=== PATIENT | male | born 1945 | race Caucasian/White ===

== ENCOUNTER → 2021-03-02 | Outpatient (CLI) | payer MEDICARE, OTHER ==
[2021-03-02 10:57] LABS: African American GFR (CKD) >90 (>60 ml/min/1.73 sqM); Blood Urea Nitrogen 23 mg/dL (9-20); Non-African American GFR(CKD) 85 (>60 ml/min/1.73 sqM)
--- NOTE | 2021-03-02 11:59 | CT ---
EXAMINATION TYPE: CT urogram wo/w con DATE OF EXAM: 03/02/2021 COMPARISON: None HISTORY: hematuria CT DLP: 1228.8 mGycm CONTRAST: Performed and without and with IV Contrast, patient injected with 100 mL of Isovue 300. CT Urography was performed with unenhanced followed by enhanced images of the kidneys, ureters and ur inary bladder. Delayed images were obtained. 3d reconstruction was performed at a separate work sta tion. FINDINGS: KIDNEYS/BLADDER: No hydronephrosis. No nephrolithiasis. Exophytic cystic lesion mid pole left kidne y posteriorly measures 1.2 cm. No additional solid or cystic lesions are identified. Urinary bladder grossly unremarkable. LUNG BASES-: No visible nodule. No infiltrate. LIVER/GB: No calcified gallstones. No space occupying hepatic lesion. Biliary tree is of normal ca liber. PANCREAS: No inflammation. No distinct mass. SPLEEN: No splenic enlargement. No lesion seen. ADRENALS: No nodule. No thickening. BOWEL: Normal appendix. Normal bowel caliber. No inflammation. GENITAL ORGANS: No gross abnormality. LYMPH NODES: No greater than 1cm abdominal or pelvic lymph nodes are appreciated. AORTA: No significant abnormality. OSSEOUS STRUCTURES: No significant abnormality is seen. OTHER: No significant additional abnormality is seen. IMPRESSION: 1. Exophytic cystic lesion mid pole left kidney posteriorly measures 1.2 cm.
== END | disposition home or self-care (01) ==
LOC: RADCTMAIN 10:21
PROVIDERS: ATTEND Urology
DX: N28.1 Cyst of kidney, acquired (principal); R31.9 Hematuria, unspecified
CPT/HCPCS: 82565; 84520; 74178; 36415; 74400; Q9967

== ENCOUNTER → 2021-07-16 | Outpatient (CLI) | payer MEDICARE, OTHER ==
--- NOTE | 2021-07-16 10:35 | XR ---
EXAM TYPE: LUMBAR SPINE X RAY SERIES COMPARISON: NONE HISTORY: Pain TECHNIQUE: 3 views are submitted. FINDINGS: Alignment is anatomic. The pedicles are intact. The transverse processes are intact. There is diff use osteopenia. Vascular calcifications are seen. Severe degenerative disc disease L5-S1 with mild to moderate changes at L4-5. Mild facet arthropathy lower lumbar spine. IMPRESSION: 1. Severe degenerative disc disease L5-S1
--- NOTE | 2021-07-16 10:37 | XR ---
EXAMINATION TYPE: XR cervical spine w flex/ext DATE OF EXAM: 07/16/2021 COMPARISON: NONE HISTORY: TECHNIQUE: Frontal, lateral and odontoid, lateral oblique and flexion-extension lateral views submitt ed. Views are submitted. FINDINGS: The odontoid is intact. There are no compression deformities. The prevertebral soft tissue structur es are within normal limits. Postsurgical changes involving the level C3-C6 appears in near-anatomic alignment. Multilevel facet arthropathy noted. There appears to be slight anterolisthesis of C6 rela tive to C7 on the neutral, flexion and extension views. Suspect foraminal encroachment involving the lower cervical spine. IMPRESSION: 1. Postsurgical changes with multilevel facet arthropathy. Slight anterolisthesis grade 1 C6 relative to T7.
== END | disposition home or self-care (01) ==
LOC: RADXRMAIN 09:59
PROVIDERS: ATTEND Internal Medicine
DX: M47.892 Other spondylosis, cervical region (principal); M51.37 Other intervertebral disc degeneration, lumbosacral region
CPT/HCPCS: 72052; 72100

== ENCOUNTER → 2021-09-08 | Outpatient (CLI) | payer MEDICARE, OTHER ==
[2021-09-08 15:42] LABS: African American GFR (CKD) >90 (>60 ml/min/1.73 sqM); Blood Urea Nitrogen 28 mg/dL (9-20); Non-African American GFR(CKD) 79 (>60 ml/min/1.73 sqM)
--- NOTE | 2021-09-09 07:29 | CT ---
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 TECHNIQUE: Helical acquisition of images was performed from the lung bases through the top of iliac crest to include entire abdomen. CONTRAST: Performed with Oral Contrast and without and with IV Contrast, patient injected with 100 mL of Isovue 300. FINDINGS: LUNG BASES: Mild to moderate medial bibasilar scarring redemonstrated. Coronary artery calcification and/or stents redemonstrated. LIVER/GB: No significant abnormality is appreciated. PANCREAS: No significant abnormality is seen. SPLEEN: No significant abnormality is seen. ADRENALS: Low dense thickening to both adrenal glands redemonstrated consistent with benign lipid justus h hyperplasia. KIDNEYS: No renal calculi on noncontrast CT. Postcontrast images show symmetric uptake and excretion without hydronephrosis seen bilaterally. There is stable exophytic 1.4 cm benign thin-walled cyst pos teriorly mid pole of the left kidney series 7 image 28. No new suspicious solid or cystic masses iden tified BOWEL: Oral contrast does not reach colonic level. No suspicious small or large bowel dilatation. LYMPH NODES: No significant abnormality is seen. OSSEOUS STRUCTURES: Moderate to severe disc space narrowing lumbosacral junction. Posterior disc her niations efface the anterior thecal sac L2-L3, L4-L5, and L5-S1 levels seen best on sagittal images. OTHER: Moderate to severe calcified plaque of the aorta extends into branch vessels IMPRESSION: Stable benign thin-walled exophytic 1.4 cm cyst posteriorly at the mid pole level of kidn ey accounting for technical differences. No suspicious new solid or cystic renal mass identified
== END | disposition home or self-care (01) ==
LOC: RADCTMAIN 15:04
PROVIDERS: ATTEND Urology
DX: D41.02 Neoplasm of uncertain behavior of left kidney (principal)
CPT/HCPCS: 82565; 84520; 74170; 36415; Q9967

== ENCOUNTER → 2021-11-10 | Outpatient (CLI) | payer MEDICARE, OTHER ==
[2021-11-10 14:40] LABS: HCT 42.3 % (39.6-50.0); MCH 28.7 pg (27.0-32.0); MCHC 33.1 g/dL (32.0-37.0); MCV 86.7 fL (80.0-97.0); Mean Platelet Volume 8.9 fL (9.5-12.2); NRBC Per 100 WBC 0 /100 WBCS (0.0-0.0); Platelet Count 135 X 10*3/uL (140-440); RBC 4.88 X 10*6/uL (4.40-5.60); RDW 16.5 % (11.5-14.5); WBC 4.96 X 10*3/uL (4.50-10.00)
[2021-11-10 14:49] LABS: African American GFR (CKD) 96.5 (60.0-200.0); Blood Urea Nitrogen 22.3 mg/dL (9.0-27.0); Non-African American GFR(CKD) 83.3 (60.0-200.0); Potassium 4.4 mmol/L (3.5-5.5)
== END | disposition home or self-care (01) ==
LOC: LABPAT 09:42
PROVIDERS: ATTEND Internal Medicine
DX: Z01.812 Encounter for preprocedural laboratory examination (principal); R07.9 Chest pain, unspecified
CPT/HCPCS: 80051; 82565; 84520; 85027

== ENCOUNTER → 2021-11-16 | Day surgery (SDC) | payer MEDICARE, OTHER ==
[2021-11-12 15:21] VITALS: BMI 21.3
[~2021-11-16] MED LIST: ALPRAZolam 0.25 MG TAB PO PRN; ALPRAZolam 0.5 MG TAB PO PRN; ASPIRIN 325 MG TAB PO ONE; ASPIRIN 81 MG ONE; HEPARIN SODIUM 1,000 UN/ML (10ML VL) IV ONE; HEPARIN SODIUM,PORCINE 10,000 UNIT in SODIUM CHLORIDE 0.9% 1,000 ML IRRIGATION PRN; HEPARIN SODIUM,PORCINE 2,500 UNIT in SODIUM CHLORIDE 0.9% 250 ML IRRIGATION PRN; IOPAMIDOL-370 125ML BTL INJ ONE; LIDOCAINE 1% INJ 10MG/ML (20 ML MDV) ONE; LIDOCAINE 1% INJ 10MG/ML (20 ML MDV) SQ ONE; MIDAZOLAM 2 MG/2 ML VIAL IV ONE; NITROGLYCERIN SL TABS 0.4 MG TAB SUBLINGUAL PRN; RX INFO: IV CONTRAST WAS GIVEN 1 EACH MISC MISCELLANE PRN; SODIUM CHLORIDE 0.9% 1,000 ML IV ONE; SODIUM CHLORIDE 0.9% 1,000 ML in EMPTY BAG 1 BAG IV SCH; VERAPAMIL 2.5 MG/ML 2 ML AMP ONE; VERAPAMIL SYRINGE (5 MG/10 ML) INTRAARTER ONE; fentaNYL (PF) 50 MCG/ML 2 ML AMP IV ONE
[2021-11-16 11:41] VITALS: RESP 16; TEMP 98.6
--- NOTE | 2021-11-16 12:48 | P.CARDCATH ---
Description of Procedure: PROCEDURES PERFORMED: Left heart catheterization, bilateral coronary angiography INDICATION: History of coronary artery disease, symptoms concerning for unstable angina HISTORY: Patient is a pleasant 76-year-old male with history of CAD status post PCI who has been having increased episodes of dyspnea with minimal exertion as well as chest tightness concerning for unstable angina and therefore heart catheterization was recommended. CONSENT:I have discussed the risks, benefits and alternative therapies for the above-mentioned procedure and for both sedation/analgesia as well as necessary blood product administration, if indicated, as they pertain to this patient. The patient has indicated understanding and acceptance of the risks and procedures discussed. PROCEDURE: After the risks, benefits and alternatives of the above mentioned procedure explained in detail with the patient, informed consent was obtained. Patient was taken to the catheterization lab and prepped and draped in usual fashion. 1% lidocaine was used to anesthetize the right radial artery. A 6- [place] Islander sheath was placed in the right radial artery using modified Seldinger technique. Left coronary angiography was performed with a 5-[place] JL 3.5 catheter and right coronary angiography was performed with a 5-[place]er JR5 catheter in various views. A 5-[place] Island[place] FR5 catheter was inserted into the left ventricle and pressure measurements were obtained. The right radial sheath was removed and a TR band was placed with hemostasis achieved. The patient tolerated the procedure well. Patient was transported back to the post catheterization holding area in stable condition. Conscious Sedation: Patient was monitored under the direct supervision of vision of myself for conscious sedation using Versed and fentanyl for a total duration of 13 minutes HEMODYNAMICS: Aorta: 133/78 LV: 128/10, LVEDP 27 SELECTIVE CORONARY ARTERIOGRAPHY: LEFT MAIN: The left main is a large caliber vessel which bifurcates into the LAD and circumflex. There is diffuse calcification with 20% distal left main stenosis. LEFT ANTERIOR DESCENDING CORONARY ARTERY: LAD is a large caliber vessel which wraps around to the apex. There is extensive calcification with diffuse 20-30% LAD stenosis. LEFT CIRCUMFLEX CORONARY ARTERY: Left circumflex is a moderate caliber vessel with diffuse calcification with 30% proximal circumflex stenosis. RIGHT CORONARY ARTERY: The right coronary artery is a large caliber vessel which gives off a PDA and PLV branch and is the dominant vessel. There in mid RCA stent which is patent with diffuse calcification and 30% mid RCA stenosis. FINAL IMPRESSION: 1. Diffusely calcified coronary artery disease with mild 30% stenosis of the LAD, circumflex and RCA. 2. Elevated left sided filling pressures PLAN: 1. Aggressive risk factor modification per most recent ACC/AHA guidelines. 2. Extensive calcifications however no significant disease that would be causing symptoms. Suspect symptoms related to heart failure, elevated LVEDP. Monitor response of Lasix.
[2021-11-16 15:32] VITALS: BP 122/60; PULSE 57
== END ==
LOC: CATHCVL 11:09
PROVIDERS: ATTEND Internal Medicine
DX: I25.10 Atherosclerotic heart disease of native coronary artery without angina pectoris (principal); Z20.822 Contact with and (suspected) exposure to COVID-19
CPT/HCPCS: 93458; 87635; C1894; J2250; J2001; J3010; J1644; Q9967

== ENCOUNTER 2022-06-04 13:40 | Emergency (ER) | payer MEDICARE, OTHER ==
[2022-06-04 13:46] VITALS: TEMP 98.3
[2022-06-04] MEDS ORDERED: MORPHINE SULFATE 2 MG/ML SYRINGE IM STA (13:58)
[2022-06-04] MEDS ORDERED: LIDOCAINE 1% INJ 10MG/ML (20 ML MDV) SQ ONE (13:58)
--- NOTE | 2022-06-04 14:02 | ED ---
Fall HPI - General Chief Complaint: Fall Stated Complaint: Fall Time Seen by Provider: 06/04/22 13:46 Source: patient, EMS, RN notes reviewed Mode of arrival: EMS - History of Present Illness Initial Comments: This is a 77-year-old male who presents to the emergency department for a fall. Patient states that he was getting into his pickup truck, when he slipped and fell face forward. Patient takes a baby aspirin daily and is not on blood thinners otherwise. Denies any loss of consciousness. He is complaining of pain in the head and neck. States that he also tried to brace himself with his left hand is now having pain in the left wrist area. Denies any fevers, chills, sore throat, cough, dyspnea, chest pain, palpitations, abdominal pain, nausea, vomiting, or diarrhea. MD Complaint: fall Fall From: standing Fall Witnessed: no Place Fall Occurred: home Loss of Consciousness: none Prolonged Down Time?: no Symptoms Prior to Fall: none Location: face Location - Extremities: Left: Hand Context: tripped/slipped - Related Data Home Medications Medication Instructions Recorded Confirmed Aspirin [Adult Low Dose Aspirin EC] 81 mg PO DAILY 11/12/21 11/16/21 Atorvastatin [Lipitor] 80 mg PO DAILY 11/12/21 11/16/21 Escitalopram [Lexapro] 10 mg PO DAILY 11/12/21 11/16/21 Escitalopram [Lexapro] 20 mg PO DAILY 11/12/21 11/16/21 Metoprolol Succinate (ER) [Toprol 25 mg PO DAILY 11/12/21 11/16/21 Xl] Previous Rx's Medication Instructions Recorded Furosemide [Lasix] 40 mg PO BID #90 tablet 11/16/21 Allergies Allergy/AdvReac Type Severity Reaction Status Date / Time No Known Allergies Allergy Verified 11/16/21 11:24 Review of Systems ROS Statement: Those systems with pertinent positive or pertinent negative responses have been documented in the HPI. ROS Other: All systems not noted in ROS Statement are negative. Past Medical History Past Medical History: Hyperlipidemia, Hypertension History of Any Multi-Drug Resistant Organisms: None Reported Additional Past Surgical History / Comment(s): Neck fusion, eye surgery Past Psychological History: Anxiety Smoking Status: Former smoker Past Alcohol Use History: None Reported Past Drug Use History: None Reported General Exam Limitations: no limitations General appearance: alert, in no apparent distress Head exam: Present: other (3 cm horizontal laceration to the left eyebrow, minor active bleeding. Hematoma to the forehead surrounding the laceration.) Eye exam: Present: EOMI, other (The right pupil is mildly dilated compared with the left, which the patient states is a chronic problem for him. Both pupils are reactive.) ENT exam: Present: TM's normal bilaterally, normal external ear exam Respiratory exam: Present: normal lung sounds bilaterally. Absent: respiratory distress, wheezes, rales, rhonchi, stridor, chest wall tenderness (No ecchymosis, tenderness, or step-offs to the left ribs) Cardiovascular Exam: Present: regular rate, normal rhythm, normal heart sounds. Absent: systolic murmur, diastolic murmur, rubs, gallop, clicks Extremities exam: Present: other (Full active and passive range of motion of the left hand and wrist. No obvious deformities, swelling, or ecchymosis.) Neurological exam: Present: alert, oriented X3, CN II-XII intact Psychiatric exam: Present: normal affect, normal mood Course Vital Signs 06/04/22 06/04/22 06/04/22 13:42 14:36 15:38 Temperature 98.3 F Pulse Rate 92 90 76 Respiratory 16 16 18 Rate Blood Pressure 156/93 140/81 140/95 O2 Sat by Pulse 98 99 100 Oximetry Procedures - Laceration Laceration #1 Consent Obtained: verbal consent Indication: laceration Site: face Size (cm): 3 Description: linear Depth: simple, single layer Anesthetic Used: lidocaine 1% Anesthesia Technique: local infiltration Amount (mls): 3 Pre-repair: wound explored, irrigated extensively Type of Sutures: nylon Size of Sutures: 5-0 Number of Sutures: 4 Technique: simple, interrupted Medical Decision Making - Medical Decision Making This is a 77-year-old male who presents to the emergency department for a fall. Computed tomography scan of the brain and C-spine obtained revealing no acute intracranial abnormalities. X-ray of the left wrist was also obtained, revealing no acute osseous abnormalities. 4 sutures were placed on the patient's forehead laceration. Patient states that he has an allergy to the tetanus vaccine, which causes facial swelling, and he no longer receives them. Prior to the patient's discharge, he started complaining of pain to the left rib area. I recommended an x-ray of his ribs, however the patient declined. We did discuss risks of pulmonary contusion from potential rib fractures, and the patient expresses understanding. Instructed him to make sure that he takes deep breaths several times a day to reduce his risk of developing a pneumonia. Strict return parameters discussed as well in that if he has increasing shortness of breath, coffee-ground emesis, or worsening pain, he should return to the emergency department for additional imaging. He will return in 7-10 days for suture removal. Advised ibuprofen and Tylenol as needed for pain relief and applying ice to the areas of pain. Return precautions reviewed in depth, the patient is instructed to return to the emergency department with any new, worsening, or concerning symptoms. Patient verbalized understanding. This case was discussed in detail with the attending ED physician. Presentation, findings, and treatment plan discussed in detail as well. - Radiology Data Radiology results: report reviewed, image reviewed Disposition Clinical Impression: Fall, Laceration Disposition: HOME SELF-CARE Instructions (If sedation given, give patient instructions): Care For Your Stitches (ED) Additional Instructions: Return to the emergency department with any new, worsening, or concerning symptoms and in 7-10 days for removal of your stitches. Alternate with ibuprofen and Tylenol as needed for pain relief. Apply ice to the areas of pain as well. Make sure that you take several deep breaths each day to reduce your risk of developing a pneumonia with the rib pain. Follow up with your primary care provider in 1-2 days. Is patient prescribed a controlled substance at d/c from ED?: No Referrals: None,Stated [REFERRING] - 1-2 days
--- NOTE | 2022-06-04 14:17 | XR ---
EXAMINATION TYPE: XR wrist complete LT DATE OF EXAM: 06/04/2022 COMPARISON: NONE HISTORY: Pain TECHNIQUE: 4 views FINDINGS: There is some mild spurring at the first carpometacarpal joint. I see no fracture nor dislo cation. There are small degenerative cyst in the proximal scaphoid bone. IMPRESSION: No acute abnormality of the left wrist. No fracture.
--- NOTE | 2022-06-04 14:53 | CT ---
EXAMINATION TYPE: CT brain lakeisha blackmon DATE OF EXAM: 06/04/2022 COMPARISON: None HISTORY: fall, head LAC CT DLP: 1435.9 mGycm Automated exposure control for dose reduction was used. Images obtained of the brain and cervical spine without contrast. There is some mild cerebral cortical atrophy. There is no mass effect or midline shift. No sign of in tracranial hemorrhage. Calvarium is intact. There is normal aeration of the mastoid sinuses. The skul l base is intact. The cervical vertebra show fairly normal alignment. There is old anterior fusion surgery with plates and screws from C4 to C7. There is a minimal subluxation at C7-T1. Facet joints are intact. No compre ssion fracture. IMPRESSION: Minimal cerebral atrophy. No acute intracranial abnormality. Left frontal scalp soft tissue swelling. Previous cervical spine fusion surgery. No acute abnormality of the cervical spine.
[2022-06-04] MEDS ORDERED: ACET/COD 300 MG/30 MG STARTER PACK 6 TAB BTL PO STA (15:24)
[2022-06-04 15:39] VITALS: BP 140/95; PULSE 76; RESP 18
== END 2022-06-04 15:39 | disposition home or self-care (01) ==
LOC: EC 13:40
DX: S01.81XA Laceration without foreign body of other part of head, initial encounter (principal); I10 Essential (primary) hypertension; E78.5 Hyperlipidemia, unspecified; Z87.891 Personal history of nicotine dependence; Z88.7 Allergy status to serum and vaccine; Z79.82 Long term (current) use of aspirin; W01.0XXA Fall on same level from slipping, tripping and stumbling without subsequent striking against object, initial encounter
CPT/HCPCS: 99284 ×2; 12013 ×2; 96372 ×2; 93005; 73110; 72125; 70450; J2001; J2270

== ENCOUNTER → 2022-06-06 | Outpatient (CLI) | payer MEDICARE, OTHER ==
--- NOTE | 2022-06-06 14:34 | XR ---
EXAMINATION TYPE: XR ribs LT w pa chest xray DATE OF EXAM: 06/06/2022 COMPARISON: NONE HISTORY: Pain TECHNIQUE: PA view of the chest and 4 views of left ribs are submitted. FINDINGS: Left lower lobe consolidation and small effusion. Postsurgical changes overlying the cervic al spine. Heart size normal curvature of the spine. No overt failure. There are displaced fractures i nvolving the anterior margin of the fifth through ninth ribs. Report called to the referring clinicia n to 2:30 PM 06/06/2022. IMPRESSION: Left lower lobe consolidation and small effusion with no sizable pneumothorax. However th ey're displaced rib fracture involving the anterolateral margin of the left fifth through ninth ribs.
== END ==
LOC: RADXRMAIN 13:47
PROVIDERS: ATTEND Internal Medicine
DX: R07.89 Other chest pain (principal)

== ENCOUNTER → 2022-06-23 | Outpatient (CLI) | payer MEDICARE, OTHER ==
--- NOTE | 2022-06-23 16:15 | US ---
EXAMINATION TYPE: US venous doppler duplex LE LT DATE OF EXAM: 06/23/2022 4:03 PM COMPARISON: NONE CLINICAL HISTORY: M79.605 PAIN IN LFT LEG. Pain and edema left foot and ankle SIDE PERFORMED: left TECHNIQUE: The lower extremity deep venous system is examined utilizing real time linear array sonog star with graded compression, doppler sonography and color-flow sonography. VESSELS IMAGED: Common Femoral Vein Deep Femoral Vein Greater Saphenous Vein * Femoral Vein Popliteal Vein Small Saphenous Vein * Proximal Calf Veins (* superficial vessels) Grayscale, color doppler, spectral doppler imaging performed of the deep veins of the lower extremiti es. There is normal flow, compressibility, vascular waveforms. Left Leg: No evidence of DVT IMPRESSION: No ultrasound evidence of deep venous thrombosis of the left lower extremity.
== END | disposition home or self-care (01) ==
LOC: RADUSWWP 15:40
PROVIDERS: ATTEND Internal Medicine
DX: M79.605 Pain in left leg (principal)

== ENCOUNTER 2023-03-22 12:10 | Inpatient (IN) | payer MEDICARE, OTHER ==
--- NOTE | 2023-03-22 13:07 | ED ---
Psych HPI - General Chief Complaint: Psychiatric Symptoms Stated Complaint: Mental Health Time Seen by Provider: 03/22/23 12:29 Source: patient Mode of arrival: ambulatory - History of Present Illness Initial Comments: This patient is 78-year-old man who presents with complaint that he is having increasing depression and more frequent thoughts of suicide. The patient states he has been having outpatient counseling between 2 and 3 months now and it has not been helping. He had just seen his counselor and they recommended he proceeded to emergency department for further evaluation. MD Complaint: suicidal ideation, feels depressed -: month(s) Associated Psychiatric Symptoms: depression, suicidal ideation History of same: Yes Quality: getting worse Improves With: none Worsens With: none Associated Symptoms: denies other symptoms - Related Data Home Medications Medication Instructions Recorded Confirmed Atorvastatin [Lipitor] 80 mg PO DAILY 11/12/21 03/22/23 Ezetimibe [Zetia] 10 mg PO DAILY 03/22/23 03/22/23 FLUoxetine HCL [PROzac] 10 mg PO DAILY 03/22/23 03/22/23 FLUoxetine HCL [PROzac] 40 mg PO DAILY 03/22/23 03/22/23 buPROPion HCL [Wellbutrin XL] 150 mg PO DAILY 03/22/23 03/22/23 busPIRone HCl [Buspar] 5 mg PO TID PRN 03/22/23 03/22/23 Allergies Allergy/AdvReac Type Severity Reaction Status Date / Time No Known Allergies Allergy Verified 03/22/23 13:24 Review of Systems ROS Statement: Those systems with pertinent positive or pertinent negative responses have been documented in the HPI. ROS Other: All systems not noted in ROS Statement are negative. Constitutional: Denies: fever, weakness Eyes: Denies: vision change Respiratory: Denies: cough Cardiovascular: Denies: chest pain, edema Gastrointestinal: Denies: abdominal pain, vomiting, diarrhea Genitourinary: Denies: dysuria, hematuria Skin: Denies: rash Neurological: Denies: headache, weakness, numbness Past Medical History Past Medical History: Hyperlipidemia, Hypertension History of Any Multi-Drug Resistant Organisms: None Reported Additional Past Surgical History / Comment(s): Neck fusion, eye surgery Past Psychological History: Anxiety Smoking Status: Former smoker Past Alcohol Use History: None Reported Past Drug Use History: None Reported General Exam Limitations: no limitations General appearance: alert, in no apparent distress Head exam: Present: atraumatic, normocephalic Eye exam: Present: normal appearance. Absent: scleral icterus, conjunctival injection Neck exam: Present: normal inspection Respiratory exam: Present: normal lung sounds bilaterally. Absent: respiratory distress, wheezes, rales, rhonchi, stridor Cardiovascular Exam: Present: regular rate, normal rhythm, normal heart sounds. Absent: systolic murmur, diastolic murmur, rubs, gallop GI/Abdominal exam: Present: soft. Absent: distended, tenderness, guarding, rebound, rigid, mass Extremities exam: Present: normal inspection, normal capillary refill Neurological exam: Present: alert Psychiatric exam: Present: depressed, suicidal ideation. Absent: agitated, anxious, flat affect, manic, homicidal ideation Skin exam: Present: warm, dry, intact, normal color. Absent: rash Course Vital Signs 03/22/23 12:13 Temperature 97.8 F Pulse Rate 109 H Respiratory 18 Rate Blood Pressure 170/89 O2 Sat by Pulse 97 Oximetry Medical Decision Making - Medical Decision Making Was pt. sent in by a medical professional or institution (, PA, VOLUNTEER SERVICES SUPERVISOR, urgent care, hospital, or group home...) When possible be specific @ -[The patient was sent from his outpatient counselor to be seen in the emergency department Did you speak to anyone other than the patient for history (EMS, parent, family, police, friend...)? What history was obtained from this source @ -[No] Did you review nursing and triage notes (agree or disagree)? Why? @ -[I reviewed and agree with nursing and triage notes] Were old charts reviewed (outside hosp., previous admission, EMS record, old EKG, old radiological studies, urgent care reports/EKG's, group home records)? Report findings @ -[No old charts were reviewed] Differential Diagnosis (chest pain, altered mental status, abdominal pain women, abdominal pain men, vaginal bleeding, weakness, fever, dyspnea, syncope, headache, dizziness, GI bleed, back pain, seizure, CVA, palpatations, mental health, musculoskeletal)? @ -[Differential Mental Health Depression, anxiety, bipolar, psychosis, schizophrenia, borderline personality, situational depression, adjustment disorder, behavioral disorder, brain tumor, malingering, substance abuse, encephalopathy, medication reaction, dementia, hypothyroidism, degenerative neurologic disorder, lupus.... This is not meant to be all-inclusive list EKG interpreted by me (3pts min.). @ -[ X-rays interpreted by me (1pt min.). @ -[None done] CT interpreted by me (1pt min.). @ -[None done] U/S interpreted by me (1pt. min.). @ -[None done] What testing was considered but not performed or refused? (CT, X-rays, U/S, labs)? Why? @ -[None] What meds were considered but not given or refused? Why? @ -[None] Did you discuss the management of the patient with other professionals (professionals i.e. , PA, VOLUNTEER SERVICES SUPERVISOR, lab, RT, psych nurse, child protective services social worker, b2b sales executive, teacher, parking control officer, employment case manager)? Give summary @ -[The case is discussed with EPS personnel. They discussed the case with the psychiatrist Was smoking cessation discussed for >3mins.? @ -[No] Was critical care preformed (if so, how long)? @ -[No] Were there social determinants of health that impacted care today? How? (Homelessness, low income, unemployed, alcoholism, drug addiction, transportation, low edu. Level, literacy, decrease access to med. care, usp, rehab)? @ -[No] Was there de-escalation of care discussed even if they declined (Discuss DNR or withdrawal of care, Hospice)? DNR status @ -[No] What co-morbidities impacted this encounter? (DM, HTN, Smoking, COPD, CAD, Cancer, CVA, ARF, Chemo, Hep., AIDS, mental health diagnosis, sleep apnea, morbid obesity)? @ -[None] Was patient admitted / discharged? Hospital course, mention meds given and route, prescriptions, significant lab abnormalities, going to OR and other rusti ne info. @ -[The patient will be admitted for further inpatient psychiatric care Undiagnosed new problem with uncertain prognosis? @ -[No] Drug Therapy requiring intensive monitoring for toxicity (Heparin, Nitro, Insulin, Cardizem)? @ -[No] Were any procedures done? @ -[No] Diagnosis/symptom? @ -[Acute mood disorder, with suicidal ideation, Acute, or Chronic, or Acute on Chronic? @ -[default] Uncomplicated (without systemic symptoms) or Complicated (systemic symptoms)? @ -[Uncomplicated Side effects of treatment? @ -[No] Exacerbation, Progression, or Severe Exacerbation? @ -[No] Poses a threat to life or bodily function? How? (Chest pain, USA, RI, pneumonia, PE, COPD, DKA, ARF, appy, cholecystitis, CVA, Diverticulitis, Homicidal, Suicidal, threat to staff... and all critical care pts) @ -[S, untreated suicidal ideation may progress to suicide attempt/ Disposition Clinical Impression: Mood disorder, Suicidal ideation Disposition: ADMITTED IP TO THIS HOSP Condition: Good Is patient prescribed a controlled substance at d/c from ED?: No Referrals: Henny Osorio MD [Primary Care Provider] - 1-2 days
[2023-03-22] MEDS ORDERED: MAG HYDROX/AL HYDROX/SIMETH 30 ML CUP PO PRN (17:31)
[2023-03-22] MEDS ORDERED: MAGNESIUM HYDROXIDE 2,400 MG/30 ML CUP PO PRN (17:31)
[2023-03-22] MEDS ORDERED: ACETAMINOPHEN TAB 325 MG TAB PO PRN (17:31)
[2023-03-22] MEDS ORDERED: OLANZapine 10 MG VIAL IM PRN (17:35)
[2023-03-22] MEDS ORDERED: hydrOXYzine HCL 50 MG/ML 1 ML VIAL IM PRN (17:35)
[2023-03-22] MEDS ORDERED: OLANZapine 2.5 MG TAB PO PRN (17:35)
[2023-03-22] MEDS: MIRTAZAPINE 15 MG TAB PO SCH (20:28)
[2023-03-22] MEDS: hydrOXYzine pamoate 25 MG CAP PO PRN (20:28)
[2023-03-23 07:19] LABS: Basophils % (A) 0 %; Eosinophils % (A) 1 %; HGB 14.9 gm/dL (13.0-17.5); Lymphocytes # (A) 0.8 k/uL (1.0-4.8); Lymphocytes % (A) 12 %; MCH 27.7 pg (25.0-35.0); MCHC 32.4 g/dL (31.0-37.0); MCV 85.6 fL (80.0-100.0); Mean Platelet Volume 7.1; Monocytes # (A) 0.4 k/uL (0-1.0); Monocytes % (A) 7 %; Neutrophils # (A) 4.9 k/uL (1.3-7.7); Neutrophils % (A) 77 %; Platelet Count 187 k/uL (150-450); Poikilocytosis Slight; RBC 5.38 m/uL (4.30-5.90); RDW 15.6 % (11.5-15.5); WBC 6.3 k/uL (3.8-10.6)
[2023-03-23 07:56] LABS: ALT 40 U/L (4-49); AST 24 U/L (17-59); African American GFR (CKD) 74 (>60 ml/min/1.73 sqM); Albumin 3.9 g/dL (3.5-5.0); Alkaline Phosphatase 99 U/L (38-126); Anion Gap 6 mmol/L; Blood Urea Nitrogen 15 mg/dL (9-20); Calcium 9.1 mg/dL (8.4-10.2); Carbon Dioxide 27 mmol/L (22-30); Chloride 108 mmol/L (98-107); Glucose 142 mg/dL (74-99); Non-African American GFR(CKD) 64 (>60 ml/min/1.73 sqM); Potassium 4.2 mmol/L (3.5-5.1); Sodium 141 mmol/L (137-145); Total Bilirubin 0.9 mg/dL (0.2-1.3); Total Protein 6.2 g/dL (6.3-8.2)
[2023-03-23] MEDS: ASPIRIN 81 MG PO SCH (08:36)
[2023-03-23] MEDS: ATORVASTATIN 80 MG TAB PO SCH (08:36)
[2023-03-23] MEDS: EZETIMIBE 10 MG TAB PO SCH (08:37)
[2023-03-23] MEDS ORDERED: buPROPion XL 150 MG TAB.ER.24H PO SCH (09:00)
[2023-03-23] MEDS ORDERED: NICOTINE 14MG/24HR PATCH TRANSDERM SCH (09:00)
--- NOTE | 2023-03-23 12:25 | P.MDCNMH ---
History of Present Illness H&P Date: 03/23/23 HISTORY OF PRESENT ILLNESS This is a 78 year old male with past medical history of hyperlipidemia, coronary artery disease, TIA, enlarged prostate, prediabetes, spondylosis of the lumbar spine, insomnia, major depressive disorder. Patient has had ongoing problems with depression. He has been following with psychiatry and psychology. Patient saw his psychologist on Monday and the psychologist was contacted regarding medication changes. Multiple medication changes apparently had been attempted without any improvement of his depression and was decided the patient would benefit from being admitted to the mental health unit while medication changes are done. She also relates that the recent sleeping pill that he tried did not seem to work. Trazodone did not work in the past. REVIEW OF SYSTEMS Constitutional: No fever, no chills, no night sweats. No weight change. No weakness, fatigue or lethargy. No daytime sleepiness. EENT: No headache. No blurred vision or double vision, no loss of vision. No loss of Hearing, no ringing in the ears, no dizziness. No nasal drainage or congestion. No epistaxis. No sore throat. Lungs: No shortness of breath, cough, no sputum production. No wheezing. Cardiovascular: No chest pain, no lower extremity edema. No palpitations. No paroxysmal nocturnal dyspnea. No orthopnea. No lightheadedness or dizziness. No syncopal episodes. Abdominal: No abdominal pain. No nausea, vomiting. No diarrhea. No constipation. No bloody or tarry stools. No loss of appetite. Genitourinary: No dysuria, increased frequency, urgency. No urinary retention. Musculoskeletal: No myalgias. No muscle weakness, no gait dysfunction, no frequent falls. Chronic back pain. No neck pain. Integumentary: No wounds, no lesions. No rash or pruritus. No unusual bruising. No change in hair or nails. Neurologic: No aphasia. No facial droop. No change in mentation. No head injury. No headache. No paralysis. No paresthesia. Psychiatric: Reports depression. Reports anxiety. Reports insomnia Endocrine: No abnormal blood sugars. No weight change. No excessive sweating or thirst. No cold intolerance. MEDICAL HISTORY Hyperlipidemia Coronary artery disease TIA Enlarged prostate Prediabetes Spondylosis of the lumbar spine Insomnia Depressive disorder SURGICAL HISTORY acdf with cadaver bone graft Colonoscopy Cardiac catheterization and PCI of the RCA SOCIAL HISTORY Patient was a smoker of a half a pack per day and quit 10-15 years ago.. FAMILY HISTORY Father at age 70 from heart disease. Mother at age 52 from natural causes. PHYSICAL EXAMINATION Gen: This is a 78-year-old male. He isn't in a chair in no acute distress, appears quite anxious HEENT: Head is atraumatic, normocephalic. Pupils equal, round. Sclerae is anicteric. NECK: Supple. No JVD. No lymphadenopathy. No thyromegaly. LUNGS: Clear to auscultation. No wheezes or rhonchi. No intercostal retractions. HEART: Regular rate and rhythm. 2/6 systolic murmur. ABDOMEN: Soft. Bowel sounds are present. No masses. No tenderness. EXTREMITIES: No pedal edema. No calf tenderness. NEUROLOGICAL: Patient is awake, alert and oriented x3. Cranial nerves 2 through 12 are grossly intact. ASSESSMENT AND PLAN 1. Recurrent depression, failed outpatient treatment. Continue management per psychiatry. 2. Hyperlipidemia. Continue Zetia 10 mg daily, Lipitor 80 mg daily. 3. History of coronary artery disease, stable, no complaints of chest pain. 4. TIA, stable. 5. Benign prostatic hypertrophy. Monitor for urinary retention. 6. Insomnia. Impression and plan of care have been directed as dictated by the signing physician. Michell eHndrix nurse practitioner acting as scribe for signing physician. Past Medical History Past Medical History: Hyperlipidemia Additional Past Medical History / Comment(s): Heart attack 2005 History of Any Multi-Drug Resistant Organisms: None Reported Additional Past Surgical History / Comment(s): Neck fusion, eye surgery, right wrist Past Anesthesia/Blood Transfusion Reactions: No Reported Reaction Past Psychological History: Anxiety, Depression Smoking Status: Never smoker Past Alcohol Use History: None Reported Past Drug Use History: None Reported Medications and Allergies Home Medications Medication Instructions Recorded Confirmed Type Atorvastatin [Lipitor] 80 mg PO DAILY 11/12/21 03/22/23 History Ezetimibe [Zetia] 10 mg PO DAILY 03/22/23 03/22/23 History FLUoxetine HCL [PROzac] 10 mg PO DAILY 03/22/23 03/22/23 History FLUoxetine HCL [PROzac] 40 mg PO DAILY 03/22/23 03/22/23 History buPROPion HCL [Wellbutrin XL] 150 mg PO DAILY 03/22/23 03/22/23 History busPIRone HCl [Buspar] 5 mg PO TID PRN 03/22/23 03/22/23 History Allergies Allergy/AdvReac Type Severity Reaction Status Date / Time No Known Allergies Allergy Verified 03/22/23 13:24 Physical Exam Vitals: Vital Signs Temp Pulse Pulse Resp BP BP Pulse Ox 03/23/23 06:40 97.7 F 89 18 132/80 99 03/22/23 19:19 97.6 F 92 17 138/84 97 03/22/23 19:02 97.6 F 92 17 138/85 97 03/22/23 18:08 99 16 157/88 97 03/22/23 12:13 97.8 F 109 H 18 170/89 97 Intake and Output 03/22/23 03/23/23 03/23/23 22:59 06:59 14:59 Other: Weight 78.206 kg Cranial Nerve Examination - Cranial Nerves Cranial Nerve I- Olfactory: Intact Cranial Nerve II- Optic: Intact Cranial Nerve III- Oculomotor: Intact Cranial Nerve IV- Trochlear: Intact Cranial Nerve V- Trigeminal: Intact Cranial Nerve - Abducens: Intact Cranial Nerve VII- Facial: Intact Cranial Nerve VIII- Auditory: Intact Cranial Nerve IX- Glossopharyngeal: Intact Cranial Nerve X- Vagus: Intact Cranial Nerve XI- Accessory: Intact Cranial Nerve XII- Hypoglossal: Intact Results CBC & Chem 7: 03/23/23 06:57 03/23/23 06:57 Labs: Abnormal Lab Results - Last 24 Hours (Table) 03/23/23 03/23/23 Range/Units 06:57 06:57 RDW 15.6 H (11.5-15.5) % Lymphocytes # 0.8 L (1.0-4.8) k/uL Chloride 108 H (98-107) mmol/L Glucose 142 H (74-99) mg/dL Total Protein 6.2 L (6.3-8.2) g/dL
--- NOTE | 2023-03-23 13:17 | P.HP ---
Psychiatric H&P - . H&P Date: 03/23/23 History & Physical: Allergies Allergy/AdvReac Type Severity Reaction Status Date / Time No Known Allergies Allergy Verified 03/22/23 13:24 Vital Signs Temp 97.7 F 03/23/23 06:40 Pulse 89 03/23/23 06:40 Resp 18 03/23/23 06:40 BP 132/80 03/23/23 06:40 Pulse Ox 99 03/23/23 06:40 FiO2 Intake & Output 03/22/23 03/23/23 03/23/23 18:59 06:59 18:59 Weight 77.111 kg 78.206 kg Laboratory Last Values WBC 6.3 k/uL (3.8-10.6) 03/23/23 06:57 RBC 5.38 m/uL (4.30-5.90) 03/23/23 06:57 Hgb 14.9 gm/dL (13.0-17.5) 03/23/23 06:57 Hct 46.0 % (39.0-53.0) 03/23/23 06:57 MCV 85.6 fL (80.0-100.0) 03/23/23 06:57 MCH 27.7 pg (25.0-35.0) 03/23/23 06:57 MCHC 32.4 g/dL (31.0-37.0) 03/23/23 06:57 RDW 15.6 % (11.5-15.5) H 03/23/23 06:57 Plt Count 187 k/uL (150-450) 03/23/23 06:57 MPV 7.1 03/23/23 06:57 Neutrophils % 77 % 03/23/23 06:57 Lymphocytes % 12 % 03/23/23 06:57 Monocytes % 7 % 03/23/23 06:57 Eosinophils % 1 % 03/23/23 06:57 Basophils % 0 % 03/23/23 06:57 Neutrophils # 4.9 k/uL (1.3-7.7) 03/23/23 06:57 Lymphocytes # 0.8 k/uL (1.0-4.8) L 03/23/23 06:57 Monocytes # 0.4 k/uL (0-1.0) 03/23/23 06:57 Eosinophils # 0.0 k/uL (0-0.7) 03/23/23 06:57 Basophils # 0.0 k/uL (0-0.2) 03/23/23 06:57 Poikilocytosis Slight 03/23/23 06:57 Sodium 141 mmol/L (137-145) 03/23/23 06:57 Potassium 4.2 mmol/L (3.5-5.1) 03/23/23 06:57 Chloride 108 mmol/L (98-107) H 03/23/23 06:57 Carbon Dioxide 27 mmol/L (22-30) 03/23/23 06:57 Anion Gap 6 mmol/L 03/23/23 06:57 BUN 15 mg/dL (9-20) 03/23/23 06:57 Creatinine 1.11 mg/dL (0.66-1.25) 03/23/23 06:57 Est GFR (CKD-EPI)AfAm 74 (>60 ml/min/1.73 sqM) 03/23/23 06:57 Est GFR (CKD-EPI)NonAf 64 (>60 ml/min/1.73 sqM) 03/23/23 06:57 Glucose 142 mg/dL (74-99) H 03/23/23 06:57 Calcium 9.1 mg/dL (8.4-10.2) 03/23/23 06:57 Total Bilirubin 0.9 mg/dL (0.2-1.3) 03/23/23 06:57 AST 24 U/L (17-59) 03/23/23 06:57 ALT 40 U/L (4-49) 03/23/23 06:57 Alkaline Phosphatase 99 U/L (38-126) 03/23/23 06:57 Total Protein 6.2 g/dL (6.3-8.2) L 03/23/23 06:57 Albumin 3.9 g/dL (3.5-5.0) 03/23/23 06:57 TSH 1.860 mIU/L (0.465-4.680) 03/23/23 06:57 Coronavirus (PCR) Not Detected (Not Detectd) 03/22/23 14:56 03/23/23 13:16 IDENTIFYING DATA: Patient is a , retired, 78-year-old male with a significant history of depression and anxiety who presented to our hospital for worsening depression and suicidal ideation. HPI: Patient presented to the hospital on 03/22/2023, [place] emergency department on the recommendation of his psychologist at the [facility]. The patient has been struggling with depression and more recently over the past 3 weeks has been experiencing suicidal ideation with a plan to jump off the balcony of his apartment. The patient signed himself voluntarily to the psychiatric unit. Upon evaluation on the psychiatric unit, the patient reports that his depression started around December 2019 after being from his of 46 years. Further exacerbating the problem is that his lives in the same apartment building as he does. He reports that it has been gradually worsening since then and that he began seeing a psychologist at the [facility] for months ago. Patient was that he was trialed numerous medications however feels like none of them have been helping. He does report significant signs and symptoms of depression including poor sleep, unintentional weight loss, anhedonia, hopelessness, helplessness. He reports that he has been having suicidal thoughts over the past few weeks and has had a plan to jump off his balcony in his apartment building. Furthermore, the patient does admit to access to firearms and states that his a couple pistols in his possession. He states that he is agreeable to having his hold onto his firearms for him. The patient also reports that he has spent excessively and is in financial trouble after falling for numerous online scams regarding romance. In regards to bipolar symptoms, the patient does not endorse any significant history of jorge luis or hypomania. He denies any periods of excessive energy, grandiosity, or mood lability. He reports no history of auditory or visual hallucinations. He denies any paranoia or other delusions. The patient reports a very remote history substance abuse. He states that he went to rehab in 1980 for alcohol use disorder and has been sober since. He also reports that since his heart attack in 2005, he stopped smoking tobacco. He denies any marijuana or illicit drug use. PAST PSYCHIATRIC HISTORY: Patient states that he has previously diagnosed with depression. Patient is currently on a home regimen that includes Remeron, Wellbutrin, Prozac, and BuSpar. Patient denies any previous psychiatric hospitalizations. Patient is currently open with [facility]. Patient denies any history of suicide attempts in the past. PMH: Past Medical History: Hyperlipidemia, Hypertension History of Any Multi-Drug Resistant Organisms: None Reported Additional Past Surgical History / Comment(s): Neck fusion, eye surgery Past Psychological History: Anxiety Smoking Status: Former smoker Past Alcohol Use History: None Reported Past Drug Use History: None Reported ALLERGIES: NO KNOWN DRUG ALLERGIES CHEMICAL DEPENDENCY HISTORY: as per HPI FAMILY PSYCHIATRIC/SUBSTANCE USE HISTORY: Patient denies any family history of psychiatric/substance use SOCIAL HISTORY: Patient was born and raised in [place]. The patient was for 46 years and was in December 2019. His currently lives in the same building but in a different apartment. They have no children. He was. He worked at [employer] for 21 years and is now retired. He also served in the [employer] and was stationed in [place]. He reports no combat trauma or sexual trauma. Honorable discharge. He is Religion however is nonpracticing. He reports no legal issues. MENTAL STATUS EXAM: General Appearance: Patient appears to be stated age is alert, directable, and attempts to cooperate. Patient appears to have good hygiene and grooming. Behavior: Patient is seated without any agitated behavior. Eye contact is appropriate. Speech: Patient's speech is fluent and nonpressured. Hyperverbal. Rapid. Inte rruptible. Mood/Affect: Patient reports their mood is depressed and nervous, affect is congruent and very anxious. Suicidality/Homicidality: Patient denies any homicidal ideation. He reports suicidal ideation. Perceptions: Patient denies any visual hallucinations and denies any auditory hallucinations Though content/process: There is no evidence of any delusional thought content and thought process is linear and goal-directed. Catastrophizing. Memory and concentration: AOX3, grossly intact for the purposes of this session. Can spell "WORLD" backwards Judgment and insight: Fair STRENGTHS/WEAKNESSES: strength is that patient is resilient. Weakness is that patient has very few social supports. INTELLECT: average IMPRESSIONS: Major depressive disorder, recurrent, severe Generalized anxiety disorder PLAN: -Patient is admitted under voluntary status to MHU for stabilization of psychiatric symptoms and safety. Patient signed adult voluntary form and medication consent and is placed in patient's chart. -Medications : Discontinue Wellbutrin Continue Remeron 15 mg by mouth at bedtime for depression/insomnia/appetite stimulation Start Restoril 15 mg by mouth at bedtime for acute stress and anxiety -Zyprexa and Vistaril PRN for agitation/aggression -Patient was informed of the risks, benefits and side effects of the medication and patient verbally consented to taking the medications. Patient signed med consent form and was placed in chart. -Internal Medicine consult to perform medical evaluation and physical. -SW on board for discharge planning. Encourage patient to participate in groups to work on coping skills. 03/23/23 13:16
[2023-03-23] MEDS: TEMAZEPAM 15 MG CAP PO SCH (20:43)
[2023-03-23] MEDS: MIRTAZAPINE 15 MG TAB PO SCH (20:43)
[2023-03-23] MEDS: hydrOXYzine pamoate 25 MG CAP PO PRN (21:52)
[2023-03-24] MEDS: ASPIRIN 81 MG PO SCH (08:36)
[2023-03-24] MEDS: ATORVASTATIN 80 MG TAB PO SCH (08:36)
[2023-03-24] MEDS: EZETIMIBE 10 MG TAB PO SCH (08:36)
[2023-03-24] MEDS ORDERED: VENLAFAXINE HCL ER 75 MG CAP PO STA (10:02)
--- NOTE | 2023-03-24 11:17 | P.PN ---
Progress Note - Text Progress Note Date: 03/24/23 Interval History: Patient was seen attending group and was directable and agreeable to speak with teletypewriter operator in the office. Currently, the patient reports that he did not sleep well last night. He reports that he continues to experience anxious and worried thoughts and is often contemplating his failed marriage. He is not endorsing any suicidal or homicidal ideation, intention, and/or plan today. He is not reporting any auditory or visual hallucinations. He denies any paranoia or other delusions. He has been in adherent with his medications and is not endorsing any significant side effects. He does report that he does not feel any therapeutic benefit at this time. He reports no medical issues or concerns and denies any chest pain, shortness breath, palpitations, or any other side effects at this time. Mental Status Exam: General Appearance: Patient appears to be stated age is alert, directable, and cooperative. Behavior: Patient is calmly seated without any agitated behavior. Speech: Patient's speech is fluent and nonpressured. Mood/Affect: Mood is "not good," affect is congruent and nervous. Suicidality/Homicidality: Patient denies having any suicidal or homicidal ideation intent or plan. Perceptions: Patient denies any visual hallucinations and denies any auditory hallucinations Though content/process: Remorseful. Ruminative. Memory and concentration: AOX3, grossly intact for the purposes of this session Judgment and insight: Improving mildly Vital Signs Temp 98.3 F 03/24/23 06:00 Pulse 67 03/24/23 06:00 Resp 17 03/24/23 06:00 BP 132/63 03/24/23 06:00 Pulse Ox 95 03/24/23 06:00 FiO2 Intake & Output 03/23/23 03/24/23 03/24/23 18:59 06:59 18:59 Weight 78.206 kg Laboratory Results - Last 24 Hours 03/23/23 06:[address] Glu mg/dL 111 Hemoglobin A1c 5.5 Assessment Major depressive disorder, recurrent, severe Generalized anxiety disorder Plan: -Patient continues to meet criteria for inpatient psychiatric admission for symptom stabilization and safety. Patient has signed adult voluntary form and medication consent and was placed in patient's chart. -Medications: Start Effexor XR 75 mg by mouth daily for depression/anxiety Continue Remeron 15 mg by mouth at bedtime for depression/insomnia/appetite stimulation Continue Restoril 15 mg by mouth at bedtime for acute stress and anxiety -When necessary Zyprexa and Vistaril for agitation/aggression. -NRT - nicotine patch -SW on board for discharge planning. Encouraged the patient to participate in milieu.
[2023-03-24] MEDS: MIRTAZAPINE 15 MG TAB PO SCH (21:39)
[2023-03-24] MEDS: TEMAZEPAM 15 MG CAP PO SCH (21:39)
[2023-03-24] MEDS: hydrOXYzine pamoate 25 MG CAP PO PRN (22:30)
[2023-03-25] MEDS: ATORVASTATIN 80 MG TAB PO SCH (08:36)
[2023-03-25] MEDS: ASPIRIN 81 MG PO SCH (08:36)
[2023-03-25] MEDS: VENLAFAXINE HCL ER 150 MG CAP PO SCH (08:36)
[2023-03-25] MEDS: EZETIMIBE 10 MG TAB PO SCH (08:36)
--- NOTE | 2023-03-25 10:09 | P.PN ---
Progress Note - Text Progress Note Date: 03/25/23 Interval history: Patient was seen wandering the hallways and was directable and agreeable to s peak with underwriter mortgage loan. Patient states that he continues to have poor sleep, requested to have his Remeron increased. He claims that he is going to some groups, claims that his mood and anxiety are still poor, has an improving appetite. At this time patient denies any suicidal or homicidal ideations intent or plan. Denies any Auditory or visual hallucinations. Patient denies any side effects from the medications and has been compliant with meds. Mental status exam: General Appearance: Patient appears to be thin, elderly, stated age is alert, directable, and cooperative. Behavior: No agitated behavior. Patient is calm and directable Speech: Patient's speech is fluent and nonpressured. Mood/Affect: Mood is improving mildly, affect is congruent and constricted. Suicidality/Homicidality: Patient denies having any suicidal or homicidal ideation intent or plan. Perceptions: Patient denies any auditory or visual hallucinations. Though content/process: There is no evidence of any delusional thought content and thought process is linear and goal-directed. Focus on the symptoms Memory and concentration: AOX3, grossly intact for the purposes of this session Judgment and insight: improving mildly Assessment/Plan: Continue with current diagnosis. Patient continues to meet criteria for inpatient psychiatric admission for symptom stabilization and safety.Patient will be maintained on current psychotropic medication regimen with the exception of increasing Remeron to 30 mg daily at bedtime. Monitor for medication compliance and for any psychotropic medication side effects. Will c ontinue to monitor ongoing response to treatment. Encouraged participation in milieu.
[2023-03-25] MEDS: TEMAZEPAM 15 MG CAP PO SCH (22:06)
[2023-03-25] MEDS: MIRTAZAPINE 15 MG TAB PO SCH (22:06)
[2023-03-26] MEDS: ASPIRIN 81 MG PO SCH (08:40)
[2023-03-26] MEDS: VENLAFAXINE HCL ER 150 MG CAP PO SCH (08:40)
[2023-03-26] MEDS: EZETIMIBE 10 MG TAB PO SCH (08:41)
[2023-03-26] MEDS: ATORVASTATIN 80 MG TAB PO SCH (08:41)
[2023-03-26] MEDS ORDERED: traZODone HCL 50 MG TAB PO PRN (12:33)
[2023-03-26] MEDS: busPIRone HCl 5 MG TAB PO SCH ×3 (12:55→22:09)
--- NOTE | 2023-03-26 13:31 | P.PN ---
Progress Note - Text Progress Note Date: 03/26/23 Interval history: Patient was seen wandering the hallways and was directable and agreeable to s peak with radio news writer. Patient claims that he is feeling very anxious today, states that yesterday he was doing much better. He claims that he still not able to see very well. He was interested in trying trazodone tonight, radio news writer explained him the side effects. He claims that his anxiety medications are not helping and was agreeable to try BuSpar as Effexor increased. States that he is going to some groups. He has a fair appetite. At this time patient denies any suicidal or homicidal ideations intent or plan. Denies any Auditory or visual hallucinations. Patient denies any side effects from the medications and has been compliant with meds. Mental status exam: General Appearance: Patient appears to be thin, elderly, stated age is alert, directable, and cooperative. Behavior: No agitated behavior. Patient is calm and directable. Appears anxious Speech: Patient's speech is fluent and nonpressured. Mood/Affect: Mood is "not good today", affect is congruent and constricted. Suicidality/Homicidality: Patient denies having any suicidal or homicidal ideation intent or plan. Perceptions: Patient denies any auditory or visual hallucinations. Though content/process: There is no evidence of any delusional thought content and thought process is linear and goal-directed. Focus on the symptoms and medications Memory and concentration: AOX3, grossly intact for the purposes of this session Judgment and insight: improving mildly Assessment/Plan: Continue with current diagnosis. Patient continues to meet criteria for inpatient psychiatric admission for symptom stabilization and safety.Patient will be maintained on current psychotropic medication regimen with the exception of adding on scheduled trazodone 50 mg daily at bedtime and also when necessary trazodone for insomnia. Increased Effexor to 225 mg starting tomorrow. Monitor for medication compliance and for any psychotropic medication side effects. Will continue to monitor ongoing response to treatment. Encouraged participation in milieu.
[2023-03-26] MEDS ORDERED: traZODone HCL 50 MG TAB PO SCH (21:00)
[2023-03-26] MEDS: MIRTAZAPINE 15 MG TAB PO SCH (22:09)
[2023-03-27] MEDS: ASPIRIN 81 MG PO SCH (08:29)
[2023-03-27] MEDS: ATORVASTATIN 80 MG TAB PO SCH (08:30)
[2023-03-27] MEDS: VENLAFAXINE HCL ER 75 MG CAP PO SCH (08:30)
[2023-03-27] MEDS: busPIRone HCl 5 MG TAB PO SCH ×3 (08:30→22:07)
[2023-03-27] MEDS: EZETIMIBE 10 MG TAB PO SCH (08:30)
--- NOTE | 2023-03-27 12:02 | P.PN ---
Progress Note - Text Progress Note Date: 03/27/23 Interval History: Patient was seen attending group and was directable and agreeable to speak with junior underwriter in the office. The patient reports that he continues to feel lonely and is concerned about loneliness in the outpatient setting. He is not reporting any suicidal or homicidal ideation, intention, and/or plan today. He does report that he had very poor sleep last night and approximately 3 hours of sleep. He continues to report elevated anxiety. He states that he is "not doing well." He reports low appetite. He denies any side effects to his medications but reports a desire for more efficacy. Mental Status Exam: General Appearance: Patient appears to be stated age is alert, directable, and cooperative. Behavior: Patient is calmly seated without any agitated behavior. Speech: Patient's speech is fluent and nonpressured. Mood/Affect: Mood is "not good," affect is congruent and nervous. Suicidality/Homicidality: Patient denies having any suicidal or homicidal ideation intent or plan. Perceptions: Patient denies any visual hallucinations and denies any auditory hallucinations Though content/process: Catastrophizes. Ruminative. Memory and concentration: AOX3, grossly intact for the purposes of this session Judgment and insight: Improving mildly Vital Signs Temp 98.2 F 03/27/23 07:01 Pulse 87 03/27/23 07:01 Resp 16 03/27/23 07:01 BP 135/75 03/27/23 07:01 Pulse Ox 98 03/27/23 07:01 FiO2 Intake & Output 03/26/23 03/27/23 03/27/23 18:59 06:59 18:59 Weight 80.8 kg Assessment Major depressive disorder, recurrent, severe Generalized anxiety disorder Plan: -Patient continues to meet criteria for inpatient psychiatric admission for symptom stabilization and safety. Patient has signed adult voluntary form and medication consent and was placed in patient's chart. -Medications: Continue Effexor XR 225 mg by mouth daily for depression/anxiety Continue Remeron 30 mg by mouth at bedtime for depression/insomnia/appetite stimulation Continue BuSpar 15 mg by mouth 3 times a day for anxiety Start trazodone 100 mg daily at bedtime for insomnia -When necessary Zyprexa and Vistaril for agitation/aggression. -NRT - nicotine patch -SW on board for discharge planning. Encouraged the patient to participate in milieu.
[2023-03-27] MEDS: hydrOXYzine pamoate 25 MG CAP PO PRN (17:16)
[2023-03-27] MEDS ORDERED: traZODone HCL 100 MG TAB PO SCH (21:00)
[2023-03-27] MEDS: MIRTAZAPINE 15 MG TAB PO SCH (22:07)
[2023-03-28] MEDS: ASPIRIN 81 MG PO SCH (08:21)
[2023-03-28] MEDS: ATORVASTATIN 80 MG TAB PO SCH (08:21)
[2023-03-28] MEDS: EZETIMIBE 10 MG TAB PO SCH (08:21)
[2023-03-28] MEDS: busPIRone HCl 5 MG TAB PO SCH ×3 (08:22→22:08)
[2023-03-28] MEDS: VENLAFAXINE HCL ER 75 MG CAP PO SCH (08:22)
--- NOTE | 2023-03-28 11:38 | P.PN ---
Progress Note - Text Progress Note Date: 03/28/23 Interval History: Patient was seen attending group and was directable and agreeable to speak with singer songwriter in the office. The patient maintains that he did not sleep well last night. However, staff have noted that the patient has suffered for 6 hours. The patient denies this. He continues to report elevated anxiety. He states that he is lonely at home and is uncertain how he would be able to handle that. He is currently denying any suicidal or homicidal ideation, intention, and/or plan. He reports no auditory or visual hallucinations. He denies any paranoia or other delusions. He has been adherent with his medications and is not reporting any significant side effects. Mental Status Exam: General Appearance: Patient appears to be stated age is alert, directable, and cooperative. Behavior: Patient is calmly seated without any agitated behavior. Speech: Patient's speech is fluent and nonpressured. Hyperverbal. Mood/Affect: Mood is "I'm not sleeping at all," affect is congruent and nervous. Suicidality/Homicidality: Patient denies having any suicidal or homicidal ideation intent or plan. Perceptions: Patient denies any visual hallucinations and denies any auditory hallucinations Though content/process: Catastrophizes. Ruminative. Memory and concentration: AOX3, grossly intact for the purposes of this session Judgment and insight: Poor Vital Signs Temp 97.4 F L 03/28/23 06:47 Pulse 71 03/28/23 06:47 Resp 18 03/28/23 06:47 BP 133/74 03/28/23 06:47 Pulse Ox 98 03/27/23 07:01 FiO2 Assessment Major depressive disorder, recurrent, severe Generalized anxiety disorder Plan: -Patient continues to meet criteria for inpatient psychiatric admission for symptom stabilization and safety. Patient has signed adult voluntary form and medication consent and was placed in patient's chart. -Medications: Continue Effexor XR 225 mg by mouth daily for depression/anxiety Continue Remeron 30 mg by mouth at bedtime for depression/insomnia/appetite stimulation Continue BuSpar 15 mg by mouth 3 times a day for anxiety Increase trazodone to 150 mg daily at bedtime for insomnia Start Restoril 7.5 mg daily at bedtime for insomnia -When necessary Zyprexa and Vistaril for agitation/aggression. -NRT - nicotine patch -SW on board for discharge planning. Encouraged the patient to participate in milieu.
[2023-03-28] MEDS: hydrOXYzine pamoate 25 MG CAP PO PRN (20:31)
[2023-03-28] MEDS ORDERED: TEMAZEPAM 7.5 MG CAP PO SCH (21:00)
[2023-03-28] MEDS: traZODone HCL 100 MG TAB PO SCH (22:08)
[2023-03-28] MEDS: MIRTAZAPINE 15 MG TAB PO SCH (22:08)
[2023-03-29] MEDS: ASPIRIN 81 MG PO SCH (08:30)
[2023-03-29] MEDS: ATORVASTATIN 80 MG TAB PO SCH (08:30)
[2023-03-29] MEDS: VENLAFAXINE HCL ER 75 MG CAP PO SCH (08:30)
[2023-03-29] MEDS: EZETIMIBE 10 MG TAB PO SCH (08:30)
[2023-03-29] MEDS: busPIRone HCl 5 MG TAB PO SCH ×3 (08:30→22:17)
[2023-03-29 10:20] VITALS: BMI 23.5
--- NOTE | 2023-03-29 11:45 | P.PN ---
Progress Note - Text Progress Note Date: 03/29/23 Interval History: Patient was seen attending group and was directable and agreeable to speak with marketing writer in the office. The patient reports that he continues to experience very poor sleep. The patient did require or trazodone in order to sleep last night. He approximates 4 hours of sleep. However, the patient does report that his anxiety has improved today. He does report occasional episodes of elevated anxiety, which usually occurs after he speaks to his ex- over the phone. He remains otherwise future and goal oriented with a desire to return to [place]. He is currently denying any suicidal or homicidal ideation, intention, and/or plan. He reports no auditory or visual hallucinations. He denies any paranoia or other delusions. He has been adherent with his medication and is not reporting any significant side effects. Mental Status Exam: General Appearance: Patient appears to be stated age is alert, directable, and cooperative. Behavior: Patient is calmly seated without any agitated behavior. Speech: Patient's speech is fluent and nonpressured. Mood/Affect: Mood is "a little bit better but I need to sleep." Affect is euthymic today. Suicidality/Homicidality: Patient denies having any suicidal or homicidal ideation intent or plan. Perceptions: Patient denies any visual hallucinations and denies any auditory hallucinations Though content/process: Fixated on his sleep Memory and concentration: AOX3, grossly intact for the purposes of this session Judgment and insight: Mildly improving Vital Signs Temp 97.9 F 03/29/23 03:19 Pulse 97 03/29/23 03:19 Resp 15 03/29/23 03:19 BP 128/75 03/29/23 03:19 Pulse Ox 98 03/27/23 07:01 FiO2 Intake & Output 03/28/23 03/29/23 03/29/23 18:59 06:59 18:59 Weight 80.8 kg Assessment Major depressive disorder, recurrent, severe Generalized anxiety disorder Plan: -Patient continues to meet criteria for inpatient psychiatric admission for symptom stabilization and safety. Patient has signed adult voluntary form and medication consent and was placed in patient's chart. -Medications: Continue Effexor XR 225 mg by mouth daily for depression/anxiety Continue Remeron 30 mg by mouth at bedtime for depression/insomnia/appetite stimulation Continue BuSpar 15 mg by mouth 3 times a day for anxiety Continue trazodone 150 mg daily at bedtime for insomnia Discontinue Restoril and start melatonin 10 mg by mouth at bedtime for insomnia -When necessary Zyprexa and Vistaril for agitation/aggression. -NRT - nicotine patch -SW on board for discharge planning. Encouraged the patient to participate in milieu.
[2023-03-29] MEDS ORDERED: MELATONIN 5 MG TABLET PO SCH ×2 (21:00)
[2023-03-29] MEDS: MIRTAZAPINE 15 MG TAB PO SCH (22:17)
[2023-03-29] MEDS: traZODone HCL 100 MG TAB PO SCH (22:18)
[2023-03-30 06:58] VITALS: BP 127/72; PULSE 69; RESP 16; TEMP 97.1
[2023-03-30] MEDS: busPIRone HCl 5 MG TAB PO SCH (08:27)
[2023-03-30] MEDS: ATORVASTATIN 80 MG TAB PO SCH (08:27)
[2023-03-30] MEDS: VENLAFAXINE HCL ER 75 MG CAP PO SCH (08:27)
[2023-03-30] MEDS: ASPIRIN 81 MG PO SCH (08:27)
[2023-03-30] MEDS: EZETIMIBE 10 MG TAB PO SCH (08:28)
--- NOTE | 2023-03-30 11:40 | P.DS ---
Providers Date of admission: 03/22/23 16:26 Expected date of discharge: 03/30/23 Attending physician: Dejuan Arroyo MD Consults: 03/22/23 17:31 Consult Physician Routine Consulting Provider: Henny Osorio Consult Reason/Comments: H&P Do you want consulting provider notified?: Yes Primary care physician: Henny Osorio - Discharge Diagnosis(es) (1) Major depressive disorder, recurrent episode, severe with anxious distress Current Visit: Yes Status: Acute Priority: High (2) Generalized anxiety disorder Current Visit: Yes Status: Acute Priority: High Hospital Course: Admission HPI: Patient is a , retired, 78-year-old male with a significant history of depression and anxiety who presented to our hospital for worsening depression and suicidal ideation. Patient presented to the hospital on 03/22/2023, [place] emergency department on the recommendation of his psychologist at the [facility]. The patient has been struggling with depression and more recently over the past 3 weeks has been experiencing suicidal ideation with a plan to jump off the balcony of his apartment. The patient signed himself voluntarily to the psychiatric unit. Upon evaluation on the psychiatric unit, the patient reports that his depression started around December 2019 after being from his of 46 years. Further exacerbating the problem is that his lives in the same apartment building as he does. He reports that it has been gradually worsening since then and that he began seeing a psychologist at the [facility] for months ago. Patient was that he was trialed numerous medications however feels like none of them have been helping. He does report significant signs and symptoms of depression including poor sleep, unintentional weight loss, anhedonia, hopelessness, helplessness. He reports that he has been having suicidal thoughts over the past few weeks and has had a plan to jump off his balcony in his apartment building. Furthermore, the patient does admit to access to firearms and states that his a couple pistols in his possession. He states that he is agreeable to having his hold onto his firearms for him. The patient also reports that he has spent excessively and is in financial trouble after falling for numerous online scams regarding romance. In regards to bipolar symptoms, the patient does not endorse any significant history of jorge luis or hypomania. He denies any periods of excessive energy, grandiosity, or mood lability. He reports no history of auditory or visual hallucinations. He denies any paranoia or other delusions. The patient reports a very remote history substance abuse. He states that he went to rehab in 1980 for alcohol use disorder and has been sober since. He als o reports that since his heart attack in 2005, he stopped smoking tobacco. He denies any marijuana or illicit drug use. Patient states that he has previously diagnosed with depression. Patient is currently on a home regimen that includes Remeron, Wellbutrin, Prozac, and BuSpar. Patient denies any previous psychiatric hospitalizations. Patient is currently open with water counseling. Patient denies any history of suicide attempts in the past. Hospital course: Upon admission to the unit patient was initially presenting as very anxious, depressed, hopeless, and reporting insomnia. Patient was however directable and agreeable to commence treatment. Patient got along well with other patients on the unit and followed unit protocol. Patient was compliant with the medications and denied any side effects throughout hospital course. Patient was started on regimen of Remeron and Restoril for management of depression, anxiety, and insomnia. His Wellbutrin was discontinued. Patient spoke of his stressors and engaged in therapy both group and individual. Patient was also seen by medical team for history and physical exam. Over the course of hospitalization, the patient had his medications adjusted in order to address his target symptoms of anxiety and insomnia. Restoril was discontinued and the patient was placed on a regimen of melatonin and trazodone for insomnia. BuSpar and Effexor were added to his regimen in order to address complaints of anxiety. Throughout the course of the hospitalization patient gradually improved with regards to his anxiety and sleep. Although the patient would report to this provider that he was not sleeping, staff would note that he has been sleeping appropriately. On the day of discharge, the patient is not reporting any suicidal or homicidal ideation, intention, and/or plan. He is not reporting any access to firearms or other weapons. He is not reporting any auditory or visual hallucinations. He reports some paranoia or other delusions. He has been adherent with his medications and is not reporting any significant side effects. He denies any medical issues or concerns and reports no chest pain, shortness of breath, palpitations, headache, blurry vision, akathisia, or tardive dyskinesia. The patient was counseled at length and the points medication adherence and appropriate outpatient follow-up. He does not have significant history substance abuse however was counseled great length and in my substances including alcohol, tobacco, marijuana, and illicit drug use. As the patient no longer met criteria for continued inpatient psychiatric hospitalization, he was subsequently discharged. Mental status exam: General Appearance: Patient appears to be stated age is alert, pleasant, and cooperative. Patient is in no acute distress and has fair hygiene and grooming Behavior: Patient is calmly seated without any agitated behavior. Speech: Patient's speech is fluent and nonpressured. Mood/Affect: Patient reports their mood is "the anxiety is better but I still have very poor sleep", affect is congruent and euthymic. Suicidality/Homicidality: Patient reports no suicidal or homicidal ideation. Perceptions: Patient denies any auditory or visual hallucinations. Though content/process: There is no evidence of any delusional thought content and thought process is linear and goal-directed. Patient is future oriented. Fixated on sleep. Memory and concentration: AOX3, grossly intact for the purposes of this session. Can spell "WORLD" backwards correctly. Judgment and insight: Improved with guarded prognosis Impression: Major depressive disorder, recurrent, severe Generalized anxiety disorder Plan: -Continue with discharge today as patient has improved and stabilized psychiatrically and is not currently an imminent threat to himself and/or others. Patient will remain at chronically elevated risk for harm to self due to his age, ongoing issues regarding divorce, and access to firearms. It was c onfirmed that his firearms have been removed from his possession however that'll be listed as a risk factor. -Continue medications: Remeron 30 mg by mouth at bedtime for depression/insomnia Trazodone 150 mg by mouth at bedtime for insomnia Effexor XR 225 mg by mouth daily for depression/anxiety BuSpar 15 mg by mouth 3 times a day for anxiety Melatonin 10 mg by mouth at bedtime for insomnia -Patient was counseled on the need for medication compliance and appropriate follow-up at mental health and also primary care for medical issues. Patient verbalized understanding and agreed. -Social work to arrange for and conduct family meeting to ensure safety upon discharge and answer any questions/concerns. Social work also to arrange for patients follow up appointments with [facility] for psychiatric care along with follow up with primary care provider. -Patient counseled on abstaining from recreational drugs and marijuana and alcohol. Was informed/educated on the adverse effects on their physical and mental health. Patient verbally agreed and understood. -Patient was instructed to return to the hospital or seek immediate medical care if their psychiatric or medical symptoms do worsen or reoccur. -Psychoeducation and supportive therapy provided to patient. Risks and benefits of pharmacological treatment versus the risks and benefits of nontreatment weighed and discussed. Informed consent discussion held. Common side effects of psychotropics discussed such as, but not limited to headache, GI disturbance, sexual dysfunction, movement disorders, sedation, and orthostatic hypotension. Life threatening and blackbox warnings of prescribed medications also discussed. Potential risks of operating a vehicle or heavy machinery discussed with patient at length. Advised on importance of compliance and a reliable and responsible manner. Patient advised to review FDA consumer labeling of all medications prior to taking. Patient verbalized understanding of potential risks, and agrees with current treatment plan. Patient advised to medically contact physician/emergency personnel if any acute changes in condition occur. Vital Signs Temp 97.1 F L 03/30/23 06:40 Pulse 69 03/30/23 06:40 Resp 16 03/30/23 06:40 BP 127/72 03/30/23 06:40 Pulse Ox 98 03/27/23 07:01 FiO2 Intake & Output 03/29/23 03/30/23 03/30/23 18:59 06:59 18:59 Weight 80.8 kg Laboratory Results WBC 6.3 k/uL (3.8-10.6) 03/23/23 06:57 RBC 5.38 m/uL (4.30-5.90) 03/23/23 06:57 Hgb 14.9 gm/dL (13.0-17.5) 03/23/23 06:57 Hct 46.0 % (39.0-53.0) 03/23/23 06:57 MCV 85.6 fL (80.0-100.0) 03/23/23 06:57 MCH 27.7 pg (25.0-35.0) 03/23/23 06:57 MCHC 32.4 g/dL (31.0-37.0) 03/23/23 06:57 RDW 15.6 % (11.5-15.5) H 03/23/23 06:57 Plt Count 187 k/uL (150-450) 03/23/23 06:57 MPV 7.1 03/23/23 06:57 Neutrophils % 77 % 03/23/23 06:57 Lymphocytes % 12 % 03/23/23 06:57 Monocytes % 7 % 03/23/23 06:57 Eosinophils % 1 % 03/23/23 06:57 Basophils % 0 % 03/23/23 06:57 Neutrophils # 4.9 k/uL (1.3-7.7) 03/23/23 06:57 Lymphocytes # 0.8 k/uL (1.0-4.8) L 03/23/23 06:57 Monocytes # 0.4 k/uL (0-1.0) 03/23/23 06:57 Eosinophils # 0.0 k/uL (0-0.7) 03/23/23 06:57 Basophils # 0.0 k/uL (0-0.2) 03/23/23 06:57 Poikilocytosis Slight 03/23/23 06:57 Sodium 141 mmol/L (137-145) 03/23/23 06:57 Potassium 4.2 mmol/L (3.5-5.1) 03/23/23 06:57 Chloride 108 mmol/L (98-107) H 03/23/23 06:57 Carbon Dioxide 27 mmol/L (22-30) 03/23/23 06:57 Anion Gap 6 mmol/L 03/23/23 06:57 BUN 15 mg/dL (9-20) 03/23/23 06:57 Creatinine 1.11 mg/dL (0.66-1.25) 03/23/23 06:57 Est GFR (CKD-EPI)AfAm 74 (>60 ml/min/1.73 sqM) 03/23/23 06:57 Est GFR (CKD-EPI)NonAf 64 (>60 ml/min/1.73 sqM) 03/23/23 06:57 Glucose 142 mg/dL (74-99) H 03/23/23 06:[address] Glu mg/dL 111 mg/dL 03/23/23 06:57 Hemoglobin A1c 5.5 % (<=6.0) 03/23/23 06:57 Calcium 9.1 mg/dL (8.4-10.2) 03/23/23 06:57 Total Bilirubin 0.9 mg/dL (0.2-1.3) 03/23/23 06:57 AST 24 U/L (17-59) 03/23/23 06:57 ALT 40 U/L (4-49) 03/23/23 06:57 Alkaline Phosphatase 99 U/L (38-126) 03/23/23 06:57 Total Protein 6.2 g/dL (6.3-8.2) L 03/23/23 06:57 Albumin 3.9 g/dL (3.5-5.0) 03/23/23 06:57 TSH 1.860 mIU/L (0.465-4.680) 03/23/23 06:57 Coronavirus (PCR) Not Detected (Not Detectd) 03/22/23 14:56 Allergies Allergy/AdvReac Type Severity Reaction Status Date / Time No Known Allergies Allergy Verified 03/22/23 13:24 Patient Condition at Discharge: Stable Plan - Discharge Summary Discharge Rx Participant: No New Discharge Prescriptions: New Mirtazapine [Remeron] 30 mg PO HS 30 Days #60 tab traZODone HCL [Desyrel] 150 mg PO HS 30 Days #45 tab Venlafaxine HCl ER [Effexor XR] 225 mg PO DAILY 15 Days #45 cap Melatonin 10 mg PO HS 30 Days #60 tab busPIRone HCL [Buspar] 15 mg PO TID 30 Days #45 tablet Continue Atorvastatin [Lipitor] 80 mg PO DAILY Ezetimibe [Zetia] 10 mg PO DAILY Discontinued busPIRone HCl [Buspar] 5 mg PO TID PRN PRN Reason: Anxiety buPROPion HCL [Wellbutrin XL] 150 mg PO DAILY FLUoxetine HCL [PROzac] 10 mg PO DAILY FLUoxetine HCL [PROzac] 40 mg PO DAILY Discharge Medication List Atorvastatin [Lipitor] 80 mg PO DAILY 11/12/21 [History] Ezetimibe [Zetia] 10 mg PO DAILY 03/22/23 [History] Melatonin 10 mg PO HS 30 Days #60 tab 03/30/23 [Rx] Mirtazapine [Remeron] 30 mg PO HS 30 Days #60 tab 03/30/23 [Rx] Venlafaxine HCl ER [Effexor XR] 225 mg PO DAILY 15 Days #45 cap 03/30/23 [Rx] busPIRone HCL [Buspar] 15 mg PO TID 30 Days #45 tablet 03/30/23 [Rx] traZODone HCL [Desyrel] 150 mg PO HS 30 Days #45 tab 03/30/23 [Rx] Follow up Appointment(s)/Referral(s): [facility] [Outside] - 04/07/23 12:00 pm (Juliana Medley) Henny Osorio MD [Primary Care Provider] - 1-2 days Patient Instructions/Handouts: Depression (DC) Activity/Diet/Wound Care/Special Instructions: Avoid the use of street drugs and alcohol. Take all medications as prescribed. When you are in need of refills on your medications, please contact your medical provider and/or outpatient psychiatrist to have this done. Please go to scheduled outpatient appointments for aftercare treatment. If symptoms return or become worse, call the crisis line at and/or go to the nearest emergency room for evaluation. Discharge Disposition: HOME SELF-CARE
== END 2023-03-30 13:25 | disposition home or self-care (01) | DRG 885 ==
LOC: EC 12:10 → 3MHU 16:26
PROVIDERS: ADMIT Psychiatry & Neurology Psychiatry; ATTEND Psychiatry & Neurology Psychiatry
DX: F33.2 Major depressive disorder, recurrent severe without psychotic features (principal); R45.851 Suicidal ideations; F41.1 Generalized anxiety disorder; E78.5 Hyperlipidemia, unspecified; F39 Unspecified mood [affective] disorder; R73.03 Prediabetes; I25.10 Atherosclerotic heart disease of native coronary artery without angina pectoris; N40.0 Benign prostatic hyperplasia without lower urinary tract symptoms; G47.00 Insomnia, unspecified; I25.2 Old myocardial infarction; Z87.891 Personal history of nicotine dependence; Z79.899 Other long term (current) drug therapy; Z98.1 Arthrodesis status; Z20.822 Contact with and (suspected) exposure to COVID-19; Z86.73 Personal history of transient ischemic attack (TIA), and cerebral infarction without residual deficits
CPT/HCPCS: 80053; 82075; 83036; 84443; 85025; 87635; 93005

== ENCOUNTER → 2023-07-24 | Outpatient (CLI) | payer MEDICARE, OTHER ==
[2023-07-24 10:35] VITALS: BP 153/88; PULSE 89; RESP 16; TEMP 97.6
--- NOTE | 2023-07-24 12:31 | P.PAINPG ---
PQRS Measure Charge Sheet Comment: HISTORY OF PRESENT ILLNESS: A 78 yr old male as a referral from Dr Osorio presents today w severe and chronic LBP secondary to DDD, spondylosis and facet arthropathy without myelopathy for evaluation. Pt states pain level is provoked at 8/10 in intensity, constant, localized in the mid to lower lumbar spine, predominantly axial, burning in character without shooting pain. Pain is provoked by laying flat or standing from a sitting position. Pain is alleviated by medications (Noro), PT years ago, repositioning and rest. Oswestry axial pain score at 23. PMH: OA, CAD, Hyperlipidemia, HTN, BPH, TIA, Vitamin D Deficiency, Anxiety PSH: Cervical Fusion, Eye Surgery, Appendectomy (2013), Colonoscopy (2021), Colon Adenoma (2018), LHC w PCI of the RCA (2006) SH: Former tobacco user, No ETOH use, No illicit drug use FH: Non contributory All: See list Meds: See list REVIEW OF ORGAN SYSTEMS: CONSTITUTIONAL: No fevers or chills. No recent weight loss. NEUROLOGICAL: + numbness and tingling along the distal extremities. No seizure disorders or headaches. MUSCULOSKELETAL: + pain PSYCHIATRIC: Denies current depression or suicidal thoughts. Physical Examinations : Constitutional : Cooperative , not in acute distress . Neurologic : Cranial nerve II to XII intact. No focal neurological deficits. Psychiatric : alert & oriented x 3. Matching mood & appropriate affect. Judgment & insight intact. Musculoskeletal : Cervical Spine Motor strength in the deltoid and biceps: Normal right side. Normal Left side Motor strength biceps and the wrist extensors: Normal right side . Normal left side Motor strength in the triceps muscle: Normal right side. Normal left side Deep tendon reflexes: Normal at the biceps. Normal at Brachioradialis. Normal at triceps Vertebral body tenderness to deep palpation over Cervical facet loading test: positive bilaterally Spurling test: positive bilaterally Neck distraction test: positive bilaterally Karen sign: positive bilaterally Lumbar spine Motor strength lower extremities ,thigh and legs 5/5 Right side , 5/5 Left side Deep tendon reflexes : Normal Knee Jerk. Normal Ankle Jerk Vertebral body tenderness over L5 Imller Test positive Lumbar facet Loading Test: positive Right / positive Left Range of motion of the lumbar spine Flexion 30 degrees, extension 10 degrees Straight Leg Raise test: Left/ Right positive at degree Azeb test: positive right / positive left. Severe tenderness over the Sacroiliac joint on the Right / Left sides Gaenslen test: positive bilaterally Seated flexion test: positive bilaterally. Sacral spine : Severe tenderness over the Sacroiliac joint: right side / left side Range of motion: Flexion of the lumbar spine <60 degrees Range of motion: Extension of the lumbar spine <20 degrees Gaenslen's Test positive Azeb test: positive right side / left side Thigh Thrust Test Sacral Thrust Test Imaging: X-ray of the cervical spine from 06/02/23 reviewed X-ray of the lumbar spine from 07/16/21 reviewed X-ray of the lumbar spine from Jun 2023 reviewed Assessment/ Plan : Lumbar DDD Recommendation of MRI non contrast of the lumbar spine, PT x 6 wks M51.36. RTC for a re evaluation. All questions answered. I have spent greater than 30 minutes on patient care today. Dr Peña was available by phone for the evaluation of this patient. The time was used to review the medical records including relevant urine studies and Prescription history (MAPs), review of the available imaging, evaluation and examination of the patient, coordination of care with the medical staff and if applicable referring physicians, as well as creation of the medical record Home Medications: Ambulatory Orders Atorvastatin [Lipitor] 80 mg PO DAILY 11/12/21 Ezetimibe [Zetia] 10 mg PO DAILY 03/22/23 Melatonin 10 mg PO HS 30 Days #60 tab 03/30/23 Mirtazapine [Remeron] 30 mg PO HS 30 Days #60 tab 03/30/23 Venlafaxine HCl ER [Effexor XR] 225 mg PO DAILY 15 Days #45 cap 03/30/23 busPIRone HCL [Buspar] 15 mg PO TID 30 Days #45 tablet 03/30/23 traZODone HCL [Desyrel] 150 mg PO HS 30 Days #45 tab 03/30/23 Controlled Substance Measures - Controlled Substance Measures Is patient prescribed a controlled substance at discharge?: No
== END ==
LOC: PNWHC3 09:37
PROVIDERS: ATTEND Specialist
DX: M47.812 Spondylosis without myelopathy or radiculopathy, cervical region (principal); M51.36 Other intervertebral disc degeneration, lumbar region
CPT/HCPCS: 99211

== ENCOUNTER → 2023-08-09 | Outpatient (CLI) | payer MEDICARE, OTHER ==
--- NOTE | 2023-08-11 11:51 | MR ---
EXAMINATION TYPE: MR lumbar spine wo con DATE OF EXAM: 08/09/2023 COMPARISON: None HISTORY: Low back pain into right side CONTRAST: 0 mL intravenous Gadavist. TECHNIQUE: Multiplanar, multisequence images of the lumbar spine were acquired. FINDINGS: Cord terminates at the L1-2 level. L5-S1: There is narrowing of the disc height at L5-S1. No focal disc herniation is evident. Neural fo ramen are patent. No spinal canal stenosis. L4-L5: Mild disc bulge has anterior thecal sac flattening. No AP spinal canal stenosis present. Ligam entum flavum laxity is present mild posterior lateral thecal sac compression. Mild left foraminal trell rowing is present. Right neural foramen is patent. L3-L4: No spinal canal stenosis or neural foraminal stenosis. Mild ligamentum flavum laxity is presen t with posterior lateral thecal sac compression. Neural foramen are patent. L2-L3: Mild disc bulge is present with anterior thecal sac flattening. No AP spinal canal stenosis or neural foraminal stenosis is present. L1-L2: Mild disc bulge with anterior thecal sac contact. No spinal canal stenosis or neural foraminal stenosis is present. T12-L1: No significant disc bulge or disc herniation. No spinal canal stenosis. No foraminal stenos is. IMPRESSION: 1. Mild disc bulging present L1-2, L2-3 and L4-5. No spinal canal stenosis is present. 2. Mild left foraminal narrowing L4-5
== END | disposition home or self-care (01) ==
LOC: RADMRIMAIN 17:45
PROVIDERS: ATTEND Physical Medicine & Rehabilitation
DX: M48.062 Spinal stenosis, lumbar region with neurogenic claudication (principal); M47.817 Spondylosis without myelopathy or radiculopathy, lumbosacral region; M51.26 Other intervertebral disc displacement, lumbar region; M99.73 Connective tissue and disc stenosis of intervertebral foramina of lumbar region
CPT/HCPCS: 72148

== ENCOUNTER → 2024-05-25 | Outpatient (CLI) | payer MEDICARE, OTHER ==
--- NOTE | 2024-05-25 12:50 | MR ---
EXAMINATION TYPE: MR Prostate wo/w con DATE OF EXAM: 05/25/2024 10:40 AM COMPARISON: None. CLINICAL INDICATION: Male, 79 years old with history of R97.20 ELEVATED PSA; elevated psa. TECHNIQUE: Multi-planar, multi-sequence imaging of the pelvis is performed prior to and following the uncomplicated administration of bolus intravenous gadolinium. CONTRAST: 7 Gadavist Interpretive Criteria: PI-RADS v2.1 SERUM PSA: 6.9 8-5-24, 5.65 6-28-23, 5.60 8-15-22 SURGICAL PATHOLOGY: No data available. FINDINGS: Prostatic dimensions: 5.1 x7.0 x 3.6 cm. Ellipsoid Volume:67.29 (PSA density=0.10 ng/mL/mL) CENTRAL GLAND (Central and Transition Zones/CZ+TZ): Multiple bilateral, heterogenous appearing hypertrophic stromal nodules, without suspicious lesion. M edian lobe hypertrophy with protrusion into the base of the bladder. (PI-RADS 2) PERIPHERAL ZONE (PZ): Bilateral linear, indistinct wedgelike areas of low ADC, and low T2 signal, No evidence of masslike a bnormality, or localized perfusional hypervascularity, to further suggest a focus of clinically signi ficant prostate cancer. (PI-RADS 2) SEMINAL VESICLES (SV): Symmetric and unremarkable. PERIPROSTATIC TISSUES: Unremarkable. LYMPH NODES: No enlarged pelvic lymph node. REMAINING PELVIS: Trabeculated bladder wall likely secondary to chronic bladder outlet obstruction. No abnormal free or organized intrapelvic fluid collection. No pathologic bowel dilation or mural thickening. Colonic diverticula are present. No hernia visualized OSSEOUS STRUCTURES: No suspicious osseous abnormality. IMPRESSION: 1. No specific features for high-risk prostate cancer. Maximum PI-RADS score: 2. 2. Moderate BPH, estimated gland volume 67.29 mL. 3. No suspicious osseous lesion. No lymphadenopathy. No evidence of prostate adenocarcinoma involving the periprostatic tissues. [facility], , 05/25/2024 12:48 PM
== END | disposition home or self-care (01) ==
LOC: RADMRIMAIN 05-22 07:00
PROVIDERS: ATTEND Internal Medicine
DX: R97.20 Elevated prostate specific antigen [PSA]
CPT/HCPCS: 72197

== ENCOUNTER → 2024-10-07 | Outpatient (CLI) | payer MEDICARE, OTHER ==
[2024-10-07 16:52] LABS: Basophils # (A) 0.02 X 10*3/uL (0.00-0.10); Basophils % (A) 0.3 %; Eosinophils # (A) 0.03 X 10*3/uL (0.04-0.35); Eosinophils % (A) 0.4 %; HCT 48.4 % (39.6-50.0); HGB 15.6 g/dL (13.0-17.0); Lymphocytes # (A) 0.72 X 10*3/uL (0.90-5.00); Lymphocytes % (A) 10.7 %; MCH 28.4 pg (27.0-32.0); MCHC 32.2 g/dL (32.0-37.0); Mean Platelet Volume 9.4 FL (9.5-12.2); NRBC Per 100 WBC 0 X 10*3/uL (0.00-0.01); Neutrophils # (A) 5.53 X 10*3/uL (1.80-7.70); Neutrophils % (A) 82.3 %; Platelet Count 181 X 10*3/uL (140-440); RDW 15.9 % (11.5-14.5); WBC 6.72 X 10*3/uL (4.50-10.00)
[2024-10-07 17:15] LABS: Appearance,Urine Clear (Clear); Bilirubin,Urine Negative (Negative); Blood,Urine Negative (Negative); Color,Urine Dark Yellow (Yellow); Ketones,Urine Trace (Negative); Nitrite,Urine Negative (Negative); PH, Urine 5.5; Specific Gravity,Urine 1.023 (1.001-1.030)
[2024-10-07 17:42] LABS: Bacteria,Urine None Seen (None Seen)
[2024-10-07 19:06] LABS: Blood Urea Nitrogen 17.3 mg/dL (9.0-27.0); Calcium 9.3 mg/dL (8.7-10.3); Carbon Dioxide 23.5 mmol/L (21.6-31.8); Chloride 104 mmol/L (96-109); Glucose 140 mg/dL (70-110); Potassium 4.6 mmol/L (3.5-5.5); Sodium 140 mmol/L (135-145)
== END | disposition home or self-care (01) ==
LOC: LABPAT 09:20
PROVIDERS: ATTEND Urology
DX: Z01.812 Encounter for preprocedural laboratory examination (principal); N40.0 Benign prostatic hyperplasia without lower urinary tract symptoms
CPT/HCPCS: 80048; 81001; 85025; 87086

== ENCOUNTER → 2024-11-06 | Outpatient (CLI) | payer MEDICARE, OTHER ==
--- NOTE | 2024-11-06 15:41 | CT ---
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 Findings: The ventricles, basal cisterns and sulci over the convexities are within normal limits for the patien t's age and there is no mass effect or shift of midline structures. No abnormal density is seen throughout the brain parenchyma and there is no acute intra or extra-axia l hemorrhage. The posterior fossa including the brainstem, fourth ventricle and cerebellar pontine angles appear no rmal. Intraorbital contents appear normal and symmetric. Visualized paranasal sinuses and mastoid air cells are well aerated. The calvarium is intact. IMPRESSION: No significant abnormality seen. There is no acute bleed or mass effect. [facility], Workstation: [id number] 11/06/2024 3:39 PM
== END | disposition home or self-care (01) ==
LOC: RADCTMAIN 15:03
PROVIDERS: ATTEND Internal Medicine
DX: G31.84 Mild cognitive impairment of uncertain or unknown etiology (principal)
CPT/HCPCS: 70450